=== PATIENT | male | born 2000 | race Hispanic/Latino ===

== ENCOUNTER 2018-10-25 12:29 | Emergency (ER) | payer MEDICAID ==
[2018-10-25] MEDS ORDERED: KETOROLAC TROMETHAMINE 60 MG/2 ML VIAL ONE (12:59)
[2018-10-25] MEDS ORDERED: DIAZEPAM 5 MG TABLET ONE (12:59)
[2018-10-25] MEDS ORDERED: LIDOCAINE 5% TOPICAL PATCH TP ONE (12:59)
== END 2018-10-25 14:22 | disposition home or self-care (01) ==
LOC: EDH 12:29
DX: M54.16 Radiculopathy, lumbar region (principal); Z72.0 Tobacco use; Z91.030 Bee allergy status
CPT/HCPCS: 96372; 99283; J1885

== ENCOUNTER 2023-05-24 19:06 | Emergency (ER) | payer MEDICAID, OTHER ==
[~2023-05-24] VITALS: Ht 167.6 cm; Wt 79.4 kg
[2023-05-24 19:28] VITALS: BP 122/67; PULSE 76; RESP 18; O2SAT 100
[2023-05-24] MEDS ORDERED: IOHEXOL 350 MG/ML 100ML INFUS..BTL IV ONE (19:41)
[2023-05-24 20:02] LABS: INR 0.94 (0.85-1.15)
[2023-05-24 20:04] LABS: PARTIAL THROMBOPLASTIN TIME 26.4 SEC (26.3-35.5)
[2023-05-24 20:27] LABS: CREATININE 0.9 mg/dL (0.5-1.5); POTASSIUM 3.5 mmol/L (3.5-5.1)
[2023-05-24] MEDS ORDERED: CYCL-309 PO (21:07)
[2023-05-24] MEDS ORDERED: IBUP-1493 PO (21:07)
== END 2023-05-24 21:31 | disposition home or self-care (01) ==
LOC: EDH 19:06
DX: S16.1XXA Strain of muscle, fascia and tendon at neck level, initial encounter (principal); S09.90XA Unspecified injury of head, initial encounter; M54.50 Low back pain, unspecified; F17.200 Nicotine dependence, unspecified, uncomplicated; V89.2XXA Person injured in unspecified motor-vehicle accident, traffic, initial encounter; Y93.89 Activity, other specified; Y92.89 Other specified places as the place of occurrence of the external cause; Y99.8 Other external cause status
CPT/HCPCS: 99285; 70450; 71045; 80048; 85610; 85730; 36415; 72125; 71270; 74178; 93005; Q9967